=== PATIENT | female | born 2000 | race American Indian/Alaskan Native ===

== ENCOUNTER 2019-06-14 10:38 | Emergency (ER) | payer SELFPAY ==
[2019-06-14 10:45] VITALS: BP 128/87
[2019-06-14 12:21] LABS: HCG Qualitative,Urine Negative (Negative)
[2019-06-14 12:23] LABS: Bilirubin,Urine NEG (Negative); Blood,Urine SM (Negative); Color,Urine Yellow (Yellow); Protein,Urine <15 mg/dL mg/dL (Negative); Urobilinogen,Urine < 2.0 mg/dL (<2.0)
--- NOTE | 2019-06-14 12:52 | XRay Report ---
ABDOMEN 1 VIEW(S) INDICATION / CLINICAL INFORMATION: abd pain. COMPARISON: None available. FINDINGS: TUBES / LINES: None. BOWEL GAS PATTERN: No significant abnormality. FREE AIR / EXTRALUMINAL GAS: None seen. ADDITIONAL FINDINGS: No significant additional findings. IMPRESSION: 1. No significant abnormality. Signer Name: Kahlil May MD Signed: 06/14/2019 12:48 PM Workstation Name: [id number]
--- NOTE | 2019-06-14 13:06 | Emergency Department Report ---
ED Abdominal Pain HPI - General Chief Complaint: Abdominal Pain Stated Complaint: ABD PAIN,HEADACHE Time Seen by Provider: 06/14/19 11:06 Source: patient Mode of arrival: Ambulatory Limitations: No Limitations - History of Present Illness Initial Comments: Patient is a 18-year-old [place] female's here for abdominal discomfort. Patient states she has abdominal pain is central in location. States the abdominal pain is been present for approximately a week. Patient denies vomiting diarrhea fevers chills cough cold congestion or neck stiffness. Patient states she has had a mild headache and nausea for the last 3 days that is consistent with migraines although she states this is resolved. Patient states the abdominal discomfort is crampy in nature. Patient has not had a menses in over a month. Patient feels as though she is approximately 2 weeks but did take a very suggestive home which was negative. Patient has no history of irregular menses - Related Data Allergies Allergy/AdvReac Type Severity Reaction Status Date / Time No Known Allergies Allergy Verified 06/14/19 10:42 ED Review of Systems ROS: Stated complaint: ABD PAIN,HEADACHE Other details as noted in HPI Comment: All other systems reviewed and negative ED Past Medical Hx - Social History Smoking Status: Never Smoker Substance Use Type: None ED Physical Exam - General Limitations: No Limitations General appearance: alert, in no apparent distress - Head Head exam: Present: atraumatic, normocephalic - Eye Eye exam: Present: normal appearance - ENT ENT exam: Present: mucous membranes moist - Neck Neck exam: Present: normal inspection - Respiratory Respiratory exam: Present: normal lung sounds bilaterally. Absent: respiratory distress, wheezes, rales, rhonchi - Cardiovascular Cardiovascular Exam: Present: regular rate, normal rhythm. Absent: systolic murmur, diastolic murmur, rubs, gallop - GI/Abdominal GI/Abdominal exam: Present: soft, tenderness (diffuse mild tenderness on palpation), normal bowel sounds. Absent: distended, guarding, rebound - Extremities Exam Extremities exam: Present: normal inspection - Back Exam Back exam: Present: normal inspection - Neurological Exam Neurological exam: Present: alert, oriented X3 - Psychiatric Psychiatric exam: Present: normal affect, normal mood - Skin Skin exam: Present: warm, dry, intact, normal color. Absent: rash ED Course Vital Signs 06/14/19 10:43 Temperature 98.5 F Pulse Rate 86 Respiratory 16 Rate Blood Pressure 128/87 [Left] O2 Sat by Pulse 99 Oximetry ED Medical Decision Making - Lab Data Lab Results 06/14/19 06/14/19 Range/Units 10:59 11:59 Urine Color Yellow (Yellow) Urine Turbidity Clear (Clear) Urine pH 5.0 (5.0-7.0) Ur Specific [place] 1.014 (1.003-1.030) Urine Protein <15 mg/dl (Negative) mg/dL Urine Glucose (UA) Neg (Negative) mg/dL Urine Ketones Neg (Negative) mg/dL Urine Blood Sm (Negative) Urine Nitrite Neg (Negative) Urine Bilirubin Neg (Negative) Urine Urobilinogen < 2.0 (<2.0) mg/dL Ur Leukocyte Esterase Neg (Negative) Urine WBC (Auto) 1.0 (0.0-6.0) /HPF Urine RBC (Auto) 1.0 (0.0-6.0) /HPF U Epithel Cells (Auto) < 1.0 (0-13.0) /HPF Urine HCG, Qual Negative (Negative) - Radiology Data Radiology results: image reviewed (a KUB is consistent with mild constipation. There is no obstructive process present however) - Medical Decision Making Patient is a 18-year-old female with abdominal pain. X-rays consistent with constipation without evidence of obstruction. Patient will be given medications for symptomatic relief. Regarding the patient's oligomenorrhea patient be referred to [facility]. Critical care attestation.: If time is entered above; I have spent that time in minutes in the direct care of this critically ill patient, excluding procedure time. ED Disposition Clinical Impression: Oligomenorrhea Qualifiers: Oligomenorrhea type: unspecified type Qualified Code(s): N91.5 - Oligomenorrhea, unspecified Constipation Qualifiers: Constipation type: slow transit constipation Qualified Code(s): K59.01 - Slow transit constipation Disposition: -01 TO HOME OR SELFCARE Is pt being admited?: No Does the pt Need Aspirin: No Condition: Stable Instructions: Abdominal Pain (ED), Constipation (ED), High Fiber Diet (ED) Referrals: [facility] [Provider Group] - 3-5 Days Time of Disposition: 13:06
== END 2019-06-14 13:15 | disposition home or self-care (01) ==
LOC: ED 10:38
DX: N91.5 Oligomenorrhea, unspecified (principal); K59.00 Constipation, unspecified
CPT/HCPCS: 74018; 81001; 81025; 99283